=== PATIENT | female | born 1965 | race Caucasian/White ===

== ENCOUNTER → 2017-11-09 | Day surgery (SDC) | payer MEDICARE ==
[~2017-11-09] MED LIST: Iopamidol-M 300 61% 15 ML VIAL ONE
[2017-11-09 07:43] VITALS: TEMP 97.4; BMI 45.7
--- NOTE | 2017-11-09 09:39 | CT ---
CERVICAL SPINE CT POST MYELOGRAM: Comparison: 08-11-16 FINDINGS: Redemonstration of a disc prosthesis at C4-5 and C5-6. Interval removal of anterior fusion plate. 1.3 mm anterolisthesis of C3 upon C4. There are stable endplate changes at the level of disc prosthesis. Cervical spine vertebral body height is maintained. There is no fracture. Visualized soft tissue nec k structures are unremarkable. Visualized lung apices are also unremarkable. C2-3: No significant disc osteophyte complex. No significant central canal stenosis. Foramina are pat ent. C3-4: Broad disc osteophyte complex abuts the thecal sac. Mild central canal stenosis. Degenerative c hange of the bilateral vertebral joints results in mild bilateral neural foraminal narrowing. C4-5: Broad based osteophyte ridge. Mild central canal stenosis. Degenerative change in bilateral marcello tebral joints results in severe right and moderate to severe left foraminal narrowing. C5-6: Broad based osteophyte ridge abuts the ventral thecal sac. Mild central canal stenosis. Degener ative changes in bilateral uncal vertebral joints results in mild to moderate right and severe left f oraminal narrowing. C6-7: No high grade central canal stenosis. Right neural foramen is patent. Mild left foraminal narro wing. C7-T1: No significant central canal stenosis. Foramina are patent. IMPRESSION: Degenerative changes of the cervical spine as above. POS: [facility]
--- NOTE | 2017-11-09 09:47 | RAD ---
CERVICAL AND LUMBAR MYELOGRAM: Date: 11/09/17 HISTORY: Lumbar and cervical radiculopathy. EXPOSURE: 1.6 minutes. 1850.6 mGy*cm^2. 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 Two views lumbar spine demonstrate five lumbar-type vertebral bodies. There is degenerative change wi th loss of disc space height and osteophyte formation of the upper lumbar spine. Incidental surgical clips and suture chain is noted projecting over the upper abdomen. Successful lumbar puncture for intrathecal contrast administration. A total of 9 mL of Isovue-300M co ntrast administered intrathecally. The patient tolerated the procedure well. No immediate or postproc edure complications. TECHNIQUE: Consent obtained to perform a lumbar myelogram. The patient's back was evaluated. The L4-L5 level was deemed appropriate. Skin was prepped and draped in the sterile fashion. 1% lidocaine, buffered with sodium bicarbonate, was used for local anesthesia. Under fluoroscopic guidance, a 22 gauge spinal nee dle was advanced into the CSF space. Inner stylette was removed. There was prompt flow of clear CSF i nto the hub of the needle. Via a short tubing catheter, a total of 9 mL Isovue-300M contrast was admi nistered intrathecally. The patient tolerated the procedure well. No immediate or postprocedure compl ications. IMPRESSION: Successful lumbar puncture for cervical and lumbar myelogram. POS: [facility]
--- NOTE | 2017-11-09 10:48 | CT ---
LUMBAR SPINE CT STATUS POST MYELOGRAM: History: Lumbar radiculopathy. Comparison: None. Technique: Post myelogram lumbar spine CT is performed in the axial plane. Reformatted images are sub mitted for interpretation. FINDINGS: Lumbar spine vertebral body height is maintained. No fracture. No spondylolisthesis or spondylosis. There is vacuum disc phenomenon at L1-2, L2-3. Symmetric attenuation of the psoas muscles. Visualized aorta has a normal caliber. Enlarged left periaortic lymph node measuring 1.1 x 1.6 cm. Conus medullaris terminates at the upper to mid L1 level. T10-11, T11-12: No high grade central canal stenosis or high grade foraminal narrowing. T12-L1: No high grade central canal stenosis or significant foraminal narrowing. L1-2: No high grade central canal stenosis. Foramen are patent. L2-3: Generalized disc bulge, ligamentum flavum thickening result in each at least mild central canal stenosis. Mild to moderate bilateral foraminal narrowing. L3-4: No significant disc abnormality. No significant central canal stenosis. Moderate right and left foraminal narrowing. L4-5: Generalized disc bulge, ligamentum flavum thickening result in mild central canal stenosis. Mil d to moderate bilateral foraminal narrowing. L5-S1: No significant disc abnormality. No significant central canal stenosis. Mild narrowing of both subarticular zones due to disc material. Partial obscuration of bilateral traversing S1 nerve roots. No significant stenosis surrounds the thecal sac. Mild bilateral foraminal narrowing. IMPRESSION: Degenerative changes of the lumbar spine as above. POS: [facility]
== END ==
LOC: RAD 06:50
PROVIDERS: ATTEND Neurological Surgery
PROC: B01B1ZZ Fluoroscopy of Spinal Cord using Low Osmolar Contrast (ICD-10-PCS; principal; 2017-11-09)
DX: M50.10 Cervical disc disorder with radiculopathy, unspecified cervical region (principal); M51.16 Intervertebral disc disorders with radiculopathy, lumbar region; F31.9 Bipolar disorder, unspecified; G43.909 Migraine, unspecified, not intractable, without status migrainosus; K21.9 Gastro-esophageal reflux disease without esophagitis; J44.9 Chronic obstructive pulmonary disease, unspecified; G47.33 Obstructive sleep apnea (adult) (pediatric); E87.6 Hypokalemia; Z98.84 Bariatric surgery status; Z88.0 Allergy status to penicillin; Z88.1 Allergy status to other antibiotic agents; Z88.8 Allergy status to other drugs, medicaments and biological substances
CPT/HCPCS: 62305; 72126; 72132

== ENCOUNTER 2017-11-16 17:51 | Emergency (ER) | payer MEDICARE ==
[2017-11-16] MEDS ORDERED: Prochlorperazine 10 MG/2 ML VIAL ONE (18:41)
[2017-11-16] MEDS ORDERED: diphenhydrAMINE 50 MG/ML VIAL ONE (18:41)
[2017-11-16 19:05] LABS: #Basophils 0.2 thou/uL (0.0-0.2); #Eosinphils 1.1 thou/uL (0.0-0.7); #Lymphocytes 2.2 thou/uL (1.20-3.40); #Monocytes 0.9 thou/uL (0.11-0.59); #Neutrophils 5.5 thou/uL (1.40-6.50); %Basophils 2.3 % (0.0-1.0); %Eosinophils 11.1 % (0.0-10.0); %Lymphocytes 22.5 % (21.0-51.0); %Monocytes 8.9 % (0.0-10.0); %Neutrophils 55.3 % (42.0-75.0); Hemoglobin 13.1 g/dL (12.0-16.0); Mean Corpuscular HGB CONC 34.4 g/dL (32.0-36.0); Mean Corpuscular Hemoglobin 30.9 pg (27.0-31.0); Mean Corpuscular Volume 89.8 fl (81.0-99.0); Mean Platelet Volume 7.6 fL (7.4-10.4); Platelet Count 172 thou/uL (130-400); RBC Distribution Width 12.3 % (11.5-14.5); Red Blood Cell (RBC) Count 4.23 mill/uL (4.20-5.40); White Blood Cell (WBC) Count 9.9 thou/uL (4.8-10.8)
[2017-11-16 19:38] LABS: ALT (SGPT) 21 U/L (8-55); AST (SGOT) 16 U/L (5-34); Albumin 3.9 g/dL (3.5-5.0); Alkaline Phosphatase 128 U/L (40-150); Anion Gap 14 mmol/L (10-20); BUN (Urea Nitrogen) 35 mg/dL (9.8-20.1); Bilirubin, Total 0.2 mg/dL (0.2-1.2); Calc. Creatinine Clearance 0 mL/min (70-130); Calcium 9.2 mg/dL (7.8-10.44); Carbon Dioxide 26 mmol/L (22-29); Chloride 105 mmol/L (98-107); Estimated GFR-MDRD 64; Globulin 3.1 g/dL (2.4-3.5); Glucose 90 mg/dL (70-105); Potassium 4.6 mmol/L (3.5-5.1); Sodium 140 mmol/L (136-145)
[2017-11-16 19:38] LABS: Troponin I Less than 0.010 ng/mL (< 0.028)
--- NOTE | 2017-11-16 19:41 | RAD ---
SINGLE VIEW OF THE CHEST: 11/16/17 COMPARISON: 03/16/17. HISTORY: Weakness since last night and cough. FINDINGS: This exam is limited secondary to underpenetration. Single view of the chest shows a normal sized cardiomediastinal silhouette. There is no evidence of c onsolidation, mass, or pleural effusion. There are bone anchors in both shoulders from bilateral shou lder surgery. IMPRESSION: No evidence of acute cardiopulmonary disease. POS: [facility]
[2017-11-16 21:40] LABS: Bilirubin Negative (Negative); Blood, Urine Negative (Negative); Clarity Clear (Clear); Glucose, Urine (Dipstick) Negative (Negative); Leukocyte Negative (Negative); Nitrite Negative (Negative); Protein, Urine (Dipstick) Negative (Neg-Trace); Urobilinogen 0.2 mg/dL (0.2-1.0)
--- NOTE | 2017-11-27 21:01 | EKG ---
Test Reason : Blood Pressure : / mmHG Vent. Rate : 077 BPM Atrial Rate : 077 BPM P-R Int : 178 ms QRS Dur : 092 ms QT Int : 412 ms P-R-T Axes : 054 049 032 degrees QTc Int : 466 ms Normal sinus rhythm Normal ECG Confirmed by YONG MARLEY, CARLOS ([id number]), newspaper copy editor ALEXANDREA BHATT ([id number]) on 11/27/2017 9:01:19 PM Referred By: Confirmed By:CARLOS BEACH MD
== END 2017-11-16 22:24 | disposition home or self-care (01) ==
LOC: SCSER 17:51
DX: G43.909 Migraine, unspecified, not intractable, without status migrainosus (principal); E86.0 Dehydration; E11.9 Type 2 diabetes mellitus without complications; K21.9 Gastro-esophageal reflux disease without esophagitis; J44.9 Chronic obstructive pulmonary disease, unspecified; F41.9 Anxiety disorder, unspecified; F31.9 Bipolar disorder, unspecified; Z86.73 Personal history of transient ischemic attack (TIA), and cerebral infarction without residual deficits; Z79.899 Other long term (current) drug therapy
CPT/HCPCS: 71045; 80053; 81003; 84484; 85025; 93005; 96374; 96375; J0780; J1200

== ENCOUNTER 2017-12-30 13:17 | Inpatient (IN) | payer MEDICARE ==
[2017-12-30] MEDS ORDERED: Acetaminophen 500 MG TAB ONE (13:56)
[2017-12-30 14:18] LABS: Bilirubin Negative (Negative); Blood, Urine Negative (Negative); Clarity Slightly Cloudy (Clear); Glucose, Urine (Dipstick) Negative (Negative); Leukocyte Trace (Negative); Nitrite Negative (Negative); Protein, Urine (Dipstick) Negative (Neg-Trace); Urobilinogen 0.2 mg/dL (0.2-1.0)
[2017-12-30 14:29] LABS: Bacteria/HPF Rare-Few HPF (None Seen); RBC/HPF 0-3 HPF (0-3); Squamous Epithelial 0-3 HPF (0-3); WBC/HPF 0-3 HPF (0-3)
--- NOTE | 2017-12-30 14:43 | CT ---
CT OF THE BRAIN WITHOUT CONTRAST: Date: 12/30/17 COMPARISON: 03/16/17. HISTORY: Altered mental status and vomiting. TECHNIQUE: Multiple contiguous axial images were obtained in a CT of the brain without contrast. FINDINGS: There is calcification in the right basal ganglia. There appear to be stable hypodensities in the duy ateral parietooccipital regions which could represent encephalomalacia or small vessel ischemic disea se in these locations. No new large confluent infarction is seen. There is no evidence of hydrocephal us, intracranial hemorrhage, or extra-axial fluid collections. The calvarium and overlying soft tissues are unremarkable. Moderate diffuse sinus disease appears sta ble compared to the prior exam. The mastoid air cells are well aerated. IMPRESSION: No evidence of acute intracranial abnormality. POS: [facility]
[2017-12-30 14:45] LABS: #Basophils 0.2 thou/uL (0.0-0.2); #Eosinphils 0.6 thou/uL (0.0-0.7); #Lymphocytes 1.3 thou/uL (1.20-3.40); #Monocytes 1.1 thou/uL (0.11-0.59); #Neutrophils 11.3 thou/uL (1.40-6.50); %Basophils 1.2 % (0.0-1.0); %Eosinophils 4.4 % (0.0-10.0); %Lymphocytes 9.1 % (21.0-51.0); %Monocytes 7.4 % (0.0-10.0); %Neutrophils 78.1 % (42.0-75.0); Hemoglobin 13.3 g/dL (12.0-16.0); Mean Corpuscular HGB CONC 34.6 g/dL (32.0-36.0); Mean Corpuscular Hemoglobin 31.3 pg (27.0-31.0); Mean Corpuscular Volume 90.5 fl (81.0-99.0); Mean Platelet Volume 5.9 fL (7.4-10.4); Platelet Count 235 thou/uL (130-400); RBC Distribution Width 12.7 % (11.5-14.5); Red Blood Cell (RBC) Count 4.26 mill/uL (4.20-5.40); White Blood Cell (WBC) Count 14.4 thou/uL (4.8-10.8)
[2017-12-30 14:59] LABS: ALT (SGPT) 27 U/L (8-55); AST (SGOT) 15 U/L (5-34); Albumin 3.9 g/dL (3.5-5.0); Alkaline Phosphatase 122 U/L (40-150); Anion Gap 11 mmol/L (10-20); BUN (Urea Nitrogen) 6 mg/dL (9.8-20.1); Bilirubin, Total 0.3 mg/dL (0.2-1.2); Calc. Creatinine Clearance 0 mL/min (70-130); Calcium 9.2 mg/dL (7.8-10.44); Carbon Dioxide 23 mmol/L (22-29); Chloride 108 mmol/L (98-107); Estimated GFR-MDRD 72; Globulin 2.8 g/dL (2.4-3.5); Glucose 105 mg/dL (70-105); Potassium 4.1 mmol/L (3.5-5.1); Protein, Total 6.7 g/dL (6.0-8.3); Sodium 138 mmol/L (136-145)
[2017-12-30] MEDS ORDERED: Prochlorperazine 10 MG/2 ML VIAL ONE (15:12)
[2017-12-30] MEDS ORDERED: Ketorolac Tromethamine 30 MG/ML VIAL ONE (15:12)
[2017-12-30] MEDS ORDERED: diphenhydrAMINE 50 MG/ML VIAL ONE (15:12)
[2017-12-30 15:27] LABS: Troponin I Less than 0.010 ng/mL (< 0.028)
[2017-12-30 18:20] VITALS: BMI 43.4
[2017-12-30] MEDS: Sodium Chloride 0.9% 1,000 ML IV SCH (19:13)
[2017-12-30] MEDS ORDERED: cloNIDine 0.1 MG TAB PO PRN (22:10)
[2017-12-30] MEDS ORDERED: traMADol HCl 50 MG TAB PO PRN (22:10)
[2017-12-31] MEDS: Aspirin/APAP/Caffeine Tab (Excedrin Migraine) PO SCH ×4 (01:20→17:48)
--- NOTE | 2017-12-31 03:46 | HP ---
DATE OF ADMISSION: 12/30/2017 PRIMARY CARE PHYSICIAN: Elliott Barbosa MD CHIEF COMPLAINT: Nausea and vomiting. HISTORY OF PRESENT ILLNESS: This is a 52-year-old female patient with multiple medical problems incl uding bipolar disorder, fibromyalgia, sleep apnea, history of TIA, history of COPD, history of chroni c pain, migraine headache who states that she has had persistent nausea and vomiting since 12/25/2017 . She initially had some diarrhea, but that improved, but she continued to have nausea, vomiting, he adache, and poor appetite. The patient states about 1-2 weeks ago, she was seen by her psychiatrist who was adjusting her medicines and stopped some of her other bipolar medicines and started her on li thium. She states that he did started on high dose because her other medicines were discontinued at the same time. She was seen by Dr. Rosa today in the office, who felt like the patient was dehydra ian and she was sent to the emergency department for further evaluation. In the ED, she was found to be mild to moderately dehydrated. She was given IV fluids. [place] level was obtained, which was i n the toxic range and she is now being admitted for treatment of lithium toxicity in the acute phase. She was found to have abnormal EKG as well, so she is being monitored during her hospitalization. Of note, when I saw her, she was feeling much better. Her nausea was improved. She was able to eat mashed potatoes tonight and states that she is feeling more hungry than she has over the past week. PAST MEDICAL HISTORY: Again, fibromyalgia; history of COPD; history of migraine with chronic pain sy ndrome; history of chronic back pain; history of TIAs in the past; bipolar disorder with itzel in the past, has been followed by Dr. Concepcion with [facility]; history of acid reflux. MEDICATIONS: Include ergotamine and caffeine p.r.n. headache. She had been on Adderall, but not john ing it presently; Cogentin 2 mg at bedtime; dicyclomine 20 mg q.i.d.; fluticasone nose spray daily; h ydroxyzine 50 mg p.r.n. allergies: ipratropium p.r.n.; Singulair 10 mg daily; Symbicort 160/4.5 b.i.d .; Xanax 0.5 mg p.r.n. twice a day; Zyrtec p.r.n.; albuterol p.r.n.; chlorzoxazone 500 mg b.i.d. p.r. n.; Dexilant 60 mg daily. ALLERGIES: Include HYDROCODONE, PENICILLIN, PREDNISONE, LEVAQUIN, DIHYDROERGOTAMINE. PAST SURGICAL HISTORY: Includes cholecystectomy, knee surgery, wrist surgery, C4-C5 neck fusion, rig ht shoulder surgery, left hand surgery, hysterectomy in 2012, gastric bypass in 2009, total abdominal hysterectomy in 2012, C5-C6 fusion by Dr. Joshi in 2013. FAMILY HISTORY: Father with lung problems, bipolar disorder. Mother alive with arthritis, breast cancer, and bipolar. Siblings with anxiety, depression, and lung problems. SOCIAL HISTORY: Quit smoking in 2012. Positive coffee. She is retired. She is not . REVIEW OF SYSTEMS: As per the history of present illness. General: She denies any recent fevers or chills. HEENT: Denies visual or hearing changes. Denies upper respiratory symptoms. Cardiac: De nies chest pain, shortness of breath, or palpitations. Pulmonary: Denies cough or hemoptysis. Isabella rointestinal: As per the history of present illness with nausea, vomiting, remote history of diarrhe a. No melena or hematochezia. Genitourinary: No dysuria or hematuria. Neurologic: Positive heada maria isabel. No seizures or syncope. PHYSICAL EXAMINATION: VITAL SIGNS: Temperature 98.1, pulse of 73, respirations 16, blood pressure 176/98, pulse ox is 100% on room air. GENERAL: She is awake, alert, in no acute distress. Speech is clear and fluid. HEENT: Mucosa is moist. NECK: Supple. HEART: Regular rate and rhythm. LUNGS: Clear. ABDOMEN: With positive bowel sounds. Soft, nontender, nondistended. No hepatosplenomegaly. EXTREMITIES: No clubbing, cyanosis, or edema. LABORATORY AND X-RAY FINDINGS: White blood cell count 14,400, hemoglobin and hematocrit 13.3 and 38. 5, platelets of 235 with a normal differential. Sodium 138, potassium 4.1, chloride 108, CO2 of 23, BUN and creatinine of 6 and 0.83, serum glucose of 105, calcium of 9.2. Liver enzymes are normal. C ardiac enzymes are negative. Urinalysis was negative. [place] level was 1.772 with the upper range goes to 1.2. CT of the brain showed no active disease. ASSESSMENT: This is a 52-year-old female patient with multiple medical problems including polypharma cy, who was recently started on lithium for her bipolar disorder and now being admitted for acute lit hium toxicity with nausea and possible EKG changes. PLAN: 1. Agree with admission to telemetry. We will continue to monitor. We will recheck lithium level i n the morning as well as CBC and chemistry. 2. Bipolar. If her lithium level is back down to normal range, possibly can restart a lower dose of the lithium for good control of her bipolar. 3. Fibromyalgia. We will continue medications. 4. Asthma and chronic obstructive pulmonary disease. We will continue her respiratory medicines as well. 5. Chronic pain. I will continue the Parafon Forte and tramadol p.r.n. 6. Migraine headache. We will try tramadol for the pain or she may have to take her own ergotamine. Hopefully, it will be a short hospital stay and she can get home quickly.
[2017-12-31 05:16] LABS: #Basophils 0.1 thou/uL (0.0-0.2); #Eosinphils 0.8 thou/uL (0.0-0.7); #Lymphocytes 2.2 thou/uL (1.20-3.40); #Monocytes 0.9 thou/uL (0.11-0.59); #Neutrophils 7.5 thou/uL (1.40-6.50); %Basophils 0.6 % (0.0-1.0); %Eosinophils 6.7 % (0.0-10.0); %Lymphocytes 19.2 % (21.0-51.0); %Monocytes 7.7 % (0.0-10.0); %Neutrophils 65.8 % (42.0-75.0); Hemoglobin 12.2 g/dL (12.0-16.0); Mean Corpuscular HGB CONC 33.2 g/dL (32.0-36.0); Mean Corpuscular Volume 93.5 fl (81.0-99.0); Mean Platelet Volume 6.8 fL (7.4-10.4); Platelet Count 249 thou/uL (130-400); RBC Distribution Width 12.8 % (11.5-14.5); Red Blood Cell (RBC) Count 3.93 mill/uL (4.20-5.40); White Blood Cell (WBC) Count 11.5 thou/uL (4.8-10.8)
[2017-12-31 05:27] LABS: ALT (SGPT) 21 U/L (8-55); AST (SGOT) 15 U/L (5-34); Albumin 3.3 g/dL (3.5-5.0); Alkaline Phosphatase 125 U/L (40-150); Anion Gap 10 mmol/L (10-20); BUN (Urea Nitrogen) 6 mg/dL (9.8-20.1); Bilirubin, Total 0.3 mg/dL (0.2-1.2); Calc. Creatinine Clearance 174 mL/min (70-130); Calcium 8.8 mg/dL (7.8-10.44); Carbon Dioxide 20 mmol/L (22-29); Chloride 111 mmol/L (98-107); Estimated GFR-MDRD 85; Globulin 2.5 g/dL (2.4-3.5); Glucose 85 mg/dL (70-105); Potassium 3.8 mmol/L (3.5-5.1); Protein, Total 5.8 g/dL (6.0-8.3); Sodium 137 mmol/L (136-145)
[2017-12-31] MEDS: Sodium Chloride 0.9% 1,000 ML IV SCH ×4 (05:31→20:42)
[2017-12-31] MEDS: Furosemide 40 MG/4 ML VIAL SLOW IVP SCH ×2 (05:51→14:52)
[2017-12-31] MEDS: Mometasone/Formoterol 120 PUFF INHALER INH SCH ×2 (07:06→19:02)
[2017-12-31] MEDS ORDERED: ACETYLCYSTEINE 600 MG PO SCH (09:00)
[2017-12-31] MEDS ORDERED: ZINC 50 MG PO SCH (09:00)
[2017-12-31] MEDS: Magnesium Oxide 400 MG TAB PO SCH (09:04)
[2017-12-31] MEDS: Ascorbic Acid 500 mg Chewable Tablet PO SCH (09:04)
[2017-12-31] MEDS: Fluticasone Propionate Nasal Spray 16 gm Bottle NASAL SCH ×2 (09:06→20:47)
--- NOTE | 2017-12-31 09:22 | PRG ---
DATE OF SERVICE: 12/31/2017 HISTORY OF PRESENT ILLNESS: The patient states she feels slightly better following IV rehydration. Still has waxing and waning headaches. Reports Dulera does not cover her asthma symptoms as well as Symbicort. Verbalized understanding regarding p.r.n. breathing treatments, has not had any overnight . Had recently underwent change with psychiatrist back to lithium with extended release 250 mg. Con tinues to report nausea, requesting Phenergan today. No reports of emesis. States her chronic migra hdey are somewhat controlled on ergotamine at this point in time, but feels they have a complex natur e with some slurring speech and cognitive decline associated with them. PHYSICAL EXAMINATION: VITAL SIGNS: Temperature of 97.9, pulse of 80, respiratory rate of 16, oxygen saturation 97% on room air, blood pressure 110/56. GENERAL: The patient is alert and oriented, no acute distress. HEENT: Normocephalic, atraumatic. Extraocular movements are intact. Sclerae are clear. Oral mucos a is moist. NECK: Supple. HEART: Regular rate and rhythm. LUNGS: Clear to auscultation bilaterally. ABDOMEN: Soft, nontender, positive bowel sounds throughout. EXTREMITIES: Lower extremities with trace pitting edema, no cyanosis. NEUROLOGIC: The patient is alert and oriented x3, no focal deficits. Speech is normal. LABORATORY DATA: White blood cell count 11.5, hemoglobin 12.2, platelet count of 249. Sodium of 137 , potassium 3.8, chloride of 111, creatinine 0.72, glucose of 85, albumin of 0.33, a.m. lithium level 1.34, decreased from 1.77 on admission. ASSESSMENT AND PLAN: [place] toxicity, bipolar disease, asthma, chronic migraines. Holding the alysa ent's lithium, monitoring levels, aggressive IV hydration. Lasix to help retain sodium and limiting free water, which may help the patient's symptom profile. Once level at 0.8 or lower, we will restar t medication at less than the equivalent of 250 extended release per day. Continuing Dulera and p.r. n. breathing treatments for patient. The patient should have had home ordered for ergotamine for her migraines p.r.n., has Excedrin Migraine on formulary p.r.n. ordered. We will follow her progress wh [facility] inpatient. Likely discharge home tomorrow after lithium level will likely be decreased. Recheck ing sodium on Lasix and IV fluids later this afternoon.
[2017-12-31] MEDS: Promethazine 25 MG TAB PO PRN ×2 (10:23→22:18)
[2017-12-31] MEDS: Zinc Sulfate 220 MG CAP PO SCH (10:23)
[2017-12-31] MEDS: Acetylcysteine 10% 100 MG/ML 30 ml Vial PO SCH ×2 (11:44→21:42)
--- NOTE | 2017-12-31 11:51 | PQF ---
CLINICAL DOCUMENTATION IMPROVEMENT CLARIFICATION FORM: ICD-10 Updated PLEASE DO AN ADDENDUM TO THE PROGRESS NOTE WITH ANY DOCUMENTATION UPDATES OR ADDITIONS AND CARRY THROUGH TO DC SUMMARY. THANK YOU. DATE: 12/31 ATTN: DR. JAMEY CHAVEZ Please exercise your independent, professional judgment in responding to the clarification form. Clinical indicators are provided on the bottom of this form for your review Please check appropriate box(s): BMI > 40 with associated diagnosis of: (check one) [ x ] Morbid (Severe) Obesity [ ] Obesity [ ] Other diagnosis [ ] Unable to determine For continuity of documentation, please document condition throughout progress notes and discharge summary. Thank You. BMI < 19 Under weight 19 - 24.9 Healthy 25.0 - 29.9 Slightly Overweight 30.0 - 34.9 Obese 35.0 - 39.9 Severely Obese 40.0 and Over Morbidly Obese CLINICAL INDICATORS - SIGNS / SYMPTOMS / LABS BMI: 43.4 RISK FACTORS: GERD COPD/ASTHMA TREATMENTS: LARGE SIZE EQUIPMENT- BP CUFF, WC, ETC NUTRITION ASSESSMENT THANK YOU! Samantha (This form is maintained as a part of the permanent medical record) 2014 [employer]. All Rights Reserved Samantha Britt RN, BSN [email or web address] Office: [phone] [facility]
[2017-12-31] MEDS ORDERED: Benzonatate 100 MG CAP PO PRN (14:07)
[2017-12-31] MEDS ORDERED: hydrOXYzine 10 MG/5 ML UDCUP PO PRN (15:01)
[2017-12-31] MEDS: PROVENTIL INHALER 6.7 G (200 INHALATIONS) INH PRN (15:19)
[2017-12-31 16:15] LABS: Anion Gap 9 mmol/L (10-20); BUN (Urea Nitrogen) 6 mg/dL (9.8-20.1); Calc. Creatinine Clearance 151 mL/min (70-130); Calcium 9.5 mg/dL (7.8-10.44); Carbon Dioxide 25 mmol/L (22-29); Chloride 109 mmol/L (98-107); Estimated GFR-MDRD 72; Glucose 74 mg/dL (70-105); Potassium 4.1 mmol/L (3.5-5.1); Sodium 139 mmol/L (136-145)
[2017-12-31] MEDS: CAFFEINE PO PRN ×2 (16:29→20:48)
[2017-12-31] MEDS: ERGOTAMINE PO PRN ×2 (16:29→20:48)
[2017-12-31] MEDS ORDERED: diphenhydrAMINE 50 MG CAP PO SCH (21:00)
[2017-12-31] MEDS ORDERED: Montelukast Sodium 10 mg Tablet PO SCH (21:00)
[2018-01-01] MEDS: Aspirin/APAP/Caffeine Tab (Excedrin Migraine) PO SCH ×2 (01:10→06:20)
[2018-01-01] MEDS: Sodium Chloride 0.9% 1,000 ML IV SCH (03:35)
[2018-01-01 05:00] LABS: #Basophils 0.1 thou/uL (0.0-0.2); #Eosinphils 0.8 thou/uL (0.0-0.7); #Lymphocytes 2.5 thou/uL (1.20-3.40); #Monocytes 0.8 thou/uL (0.11-0.59); #Neutrophils 5.4 thou/uL (1.40-6.50); %Basophils 0.7 % (0.0-1.0); %Eosinophils 8.4 % (0.0-10.0); %Lymphocytes 26.2 % (21.0-51.0); %Monocytes 8.3 % (0.0-10.0); %Neutrophils 56.4 % (42.0-75.0); Mean Corpuscular HGB CONC 34.1 g/dL (32.0-36.0); Mean Corpuscular Hemoglobin 31.3 pg (27.0-31.0); Mean Corpuscular Volume 91.6 fl (81.0-99.0); Mean Platelet Volume 6.5 fL (7.4-10.4); Platelet Count 237 thou/uL (130-400); RBC Distribution Width 12.8 % (11.5-14.5); Red Blood Cell (RBC) Count 4.17 mill/uL (4.20-5.40); White Blood Cell (WBC) Count 9.6 thou/uL (4.8-10.8)
[2018-01-01 05:14] LABS: ALT (SGPT) 23 U/L (8-55); AST (SGOT) 18 U/L (5-34); Albumin 3.5 g/dL (3.5-5.0); Alkaline Phosphatase 129 U/L (40-150); Anion Gap 13 mmol/L (10-20); BUN (Urea Nitrogen) 6 mg/dL (9.8-20.1); Bilirubin, Total 0.3 mg/dL (0.2-1.2); Calc. Creatinine Clearance 153 mL/min (70-130); Calcium 8.7 mg/dL (7.8-10.44); Carbon Dioxide 18 mmol/L (22-29); Chloride 110 mmol/L (98-107); Estimated GFR-MDRD 73; Globulin 2.9 g/dL (2.4-3.5); Glucose 136 mg/dL (70-105); Potassium 3.5 mmol/L (3.5-5.1); Protein, Total 6.4 g/dL (6.0-8.3); Sodium 137 mmol/L (136-145)
[2018-01-01] MEDS: Furosemide 40 MG/4 ML VIAL SLOW IVP SCH (06:20)
[2018-01-01] MEDS: Mometasone/Formoterol 120 PUFF INHALER INH SCH (07:17)
[2018-01-01] MEDS: PROVENTIL INHALER 6.7 G (200 INHALATIONS) INH PRN (07:19)
[2018-01-01] MEDS ORDERED: Lithium Carbonate 150 MG CAP PO SCH (08:30)
[2018-01-01] MEDS ORDERED: Metoclopramide HCl 10 MG/2 ML VIAL IVP PRN (08:34)
[2018-01-01] MEDS ORDERED: Promethazine HCl 25 MG/ML VIAL IM/IV SCH (09:00)
[2018-01-01] MEDS: CAFFEINE PO PRN (09:33)
[2018-01-01] MEDS: Zinc Sulfate 220 MG CAP PO SCH (09:33)
[2018-01-01] MEDS: Acetylcysteine 10% 100 MG/ML 30 ml Vial PO SCH (09:33)
[2018-01-01] MEDS: ERGOTAMINE PO PRN (09:33)
[2018-01-01] MEDS: Ascorbic Acid 500 mg Chewable Tablet PO SCH (09:35)
[2018-01-01] MEDS: Magnesium Oxide 400 MG TAB PO SCH (09:36)
[2018-01-01] MEDS: Fluticasone Propionate Nasal Spray 16 gm Bottle NASAL SCH (09:36)
[2018-01-01 16:21] VITALS: BP 109/55; TEMP 98.3
--- NOTE | 2018-01-02 11:20 | DIS ---
DATE OF ADMISSION: 12/30/2017 DATE OF DISCHARGE: 01/01/2018 CHIEF COMPLAINT: Altered mental status, dehydration. HISTORY OF PRESENT ILLNESS: The patient, following an increase in lithium with her psychiatrist and discontinuation of other antipsychotics given patient's change from commercial to Medicare insurance, has attempted on extended release lithium and has not had a lithium level checked in approximately 2 weeks since starting her medication. [place] level in the emergency department was at toxic levels, likely explaining a lot of her nausea, fatigue, ataxia, cognitive impairment. The patient is status post bariatric surgery and has functional diarrhea, longstanding history of chronic migraines produc e nausea. She states she has been unable to keep much down over the last week. HOSPITAL COURSE: The patient was rehydrated with IV fluids, monitored on lithium level, restarted on immediate release low dose lithium; once her levels reached 0.8, continued on her home ergotamine re garding migraines. Patient to follow up in clinic next week with myself, Dr. Elliott Barbosa, follow up with her psychiatrist in the next month. We will recheck lithium level by the end of the week. Continue other home medications otherwise. Refilled patient's per rectum Phenergan. DISCHARGE DIET: Bariatric. DISCHARGE ACTIVITY: As tolerated. DISCHARGE CONDITION: Fair. HOME MEDICATIONS: Include Cogentin 2 mg t.i.d., Symbicort 160/4.5, Parafon Forte 500 mg p.r.n., Dexi lant 60 mg, lithium 150 mg b.i.d., magnesium 200 mg, Singulair 10 mg, Phenergan suppository 25 mg. C T head was performed and was negative. No consultations performed.
== END 2018-01-01 16:10 | disposition home or self-care (01) | DRG 92 ==
LOC: SCSER 13:17 → 2NO 16:15
PROVIDERS: ADMIT Family Medicine; ATTEND Family Medicine
DX: R27.0 Ataxia, unspecified (principal); K91.89 Other postprocedural complications and disorders of digestive system; Z68.41 Body mass index [BMI] 40.0-44.9, adult; E86.0 Dehydration; K59.1 Functional diarrhea; G43.909 Migraine, unspecified, not intractable, without status migrainosus; R53.83 Other fatigue; T43.595A Adverse effect of other antipsychotics and neuroleptics, initial encounter; R11.2 Nausea with vomiting, unspecified; F31.9 Bipolar disorder, unspecified; M79.7 Fibromyalgia; G47.30 Sleep apnea, unspecified; Z86.73 Personal history of transient ischemic attack (TIA), and cerebral infarction without residual deficits; J44.9 Chronic obstructive pulmonary disease, unspecified; G89.4 Chronic pain syndrome; Z87.891 Personal history of nicotine dependence; E66.01 Morbid (severe) obesity due to excess calories; F41.9 Anxiety disorder, unspecified
CPT/HCPCS: 36415; 70450; 80053; 80178; 81003; 81015; 82553; 83970; 84443; 84484; 85025; 93005; 94640; 96361; 96374; 96375; J0780; J1200; J1885; J1940; J2550; J2765; J7050; J7608; J7620

== ENCOUNTER 2018-04-14 14:16 | Outpatient (CLI) | payer MEDICARE ==
--- NOTE | 2018-04-14 16:13 | RAD ---
2 VIEWS LUMBAR SPINE: Date: 04/14/18 HISTORY: Recent fall. Previous surgery. COMPARISON: 05/21/16. FINDINGS: Two views of the lumbar spine are submitted for interpretation. Limited evaluation due to motion. The re are bilateral transpedicular screws at L2-L3. Possible perihardware lucency involving the screws a t L3. There is 5 mm of retrolisthesis of L2 upon L3. No evidence of vertebral body fracture. Stable d egenerative disc disease with loss of disc space height and osteophyte formation. IMPRESSION: 1. Redemonstration of essentially 5 mm of retrolisthesis of L2 upon L3. 2. Suggestion of perihardware lucency involving the transpedicular screws at L3. Better interrogatio n with a repeat lateral radiograph versus a lumbar spine CT is recommended. POS: [facility]
== END 2018-04-14 14:17 | disposition home or self-care (01) ==
LOC: TBSIIMAG 14:16
PROVIDERS: ATTEND Neurological Surgery
DX: M54.5 Low back pain (principal); M43.16 Spondylolisthesis, lumbar region; Z98.1 Arthrodesis status
CPT/HCPCS: 72100

== ENCOUNTER 2018-07-19 14:59 | Outpatient (CLI) | payer MEDICARE ==
--- NOTE | 2018-07-19 18:14 | CT ---
CT LUMBAR SPINE WITHOUT CONTRAST: History: Low back pain. Patient fell recently. Right foot and leg numbness and heaviness. Comparison: 03-13-10 FINDINGS: Five lumbar type vertebral bodies. Lumbar spine vertebral body height is maintained. No fracture. The re is vacuum disc phenomenon at L1-2 and L2-3. There are bilateral transpedicular screws at L2 and L3 . No perihardware lucency. 2.5 mm of retrolisthesis of at L2 upon L3. Bilateral pars defects are not appreciated, throughout the lumbar spine. Symmetric attenuation of the psoas muscles. Appropriate attenuation of the visualized solid organs. No retroperitoneal mass, lymphadenopathy, or hematoma. Limited evaluation of the contents of the spinal canal or neural foramina due to technique. T11-12 and T12-L1: No high grade central canal stenosis or high grade neural foraminal narrowing. L1-2: No significant central canal stenosis. Neural foramina are patent. L2-3: Generalized disc bulge results in mild central canal stenosis. Right neural foramen is moderate ly narrowed. Left neural foramen is patent. L3-4: Generalized disc bulge, minimal ligamentum flavum thickening results in mild central canal sten osis. Mild right and left foraminal narrowing. L4-5: Generalized disc bulge, ligamentum flavum thickening and facet hypertrophy results in mild cent ral canal stenosis. Mild bilateral foraminal narrowing. L5-S1: No significant posterior disc abnormality. No significant central canal stenosis. Mild bilater al foraminal narrowing. There is vacuum joint phenomenon. IMPRESSION: 1. Uncomplicated lumbar fusion hardware. 2. No evidence of lumbar spine fracture. 3. Varying degrees of central canal stenosis and foraminal narrowing as detailed above. POS: [facility]
--- NOTE | 2018-07-19 18:20 | CT ---
CT CERVICAL SPINE WITHOUT CONTRAST: Date: 07/19/18 HISTORY: Cervical radiculopathy. Neck pain with severe right shoulder and arm numbness x2 months. COMPARISON: Post myelogram CT dated 11/17/17. FINDINGS: There is no craniocervical dissociation. Lateral masses of C1 and C2, as well as facets, articulate a ppropriately. Intact odontoid process. There is a prosthesis at the C4-C5 and C5-C6 disc space levels. Cervical spine vertebral body heights are maintained. No fracture. End plate irregularity at C4-C5 and C5-C6 is likely on the basis of chr onic degenerative change. Soft tissue neck structures are unremarkable. Effacement of the left piriform sinus may be due to benny ign apposition of mucosa. Nonemergent direct visualization is recommended. Upper mediastinum and lung apices are unremarkable. C2-C3: No significant disc osteophyte complex. No significant central canal stenosis. Neural foramin a are patent. C3-C4: There is a broad based disc osteophyte complex with resultant moderate central canal stenosis . Bilaterally, neural foramina are patent. C4-C5: Broad based disc osteophyte ridge with mild to moderate central canal stenosis. Degenerative changes in bilateral uncovertebral joints results in moderate right and mild left foraminal narrowing . C5-C6: Broad based disc osteophyte ridge with resultant moderate central canal stenosis. Degenerativ e changes and bilateral uncovertebral joints and bilateral facet hypertrophy result in moderate to se [place]hara right and left foraminal narrowing. C6-C7: Broad based disc osteophyte complex. Mild central canal stenosis. Degenerative changes in duy ateral uncovertebral joints results in mild right and moderate left foraminal narrowing. C7-T1: No significant central canal stenosis or neural foraminal narrowing. IMPRESSION: Disc prosthesis at C4-C5 and C5-C6 levels. End plate changes are presumed to be chronic. No evidence of fracture. POS: [facility]
== END 2018-07-19 15:00 | disposition home or self-care (01) ==
LOC: BICCT 14:59
PROVIDERS: ATTEND Neurological Surgery
DX: M54.12 Radiculopathy, cervical region (principal); M54.5 Low back pain; M48.061 Spinal stenosis, lumbar region without neurogenic claudication; M48.07 Spinal stenosis, lumbosacral region; Z96.698 Presence of other orthopedic joint implants; Z98.1 Arthrodesis status
CPT/HCPCS: 72125; 72131

== ENCOUNTER 2018-07-31 16:31 | Emergency (ER) | payer MEDICARE ==
[2018-07-31 17:11] LABS: #Basophils 0.1 thou/uL (0.0-0.2); #Eosinphils 1.1 thou/uL (0.0-0.7); #Monocytes 1.1 thou/uL (0.11-0.59); #Neutrophils 6.2 thou/uL (1.40-6.50); %Basophils 0.6 % (0.0-1.0); %Eosinophils 10.1 % (0.0-10.0); %Lymphocytes 19.1 % (21.0-51.0); %Monocytes 10.4 % (0.0-10.0); %Neutrophils 59.7 % (42.0-75.0); Mean Corpuscular HGB CONC 32.5 g/dL (32.0-36.0); Mean Corpuscular Hemoglobin 31.5 pg (27.0-31.0); Mean Corpuscular Volume 96.8 fL (78.0-98.0); Mean Platelet Volume 6.9 fL (7.4-10.4); Platelet Count 283 thou/uL (130-400); RBC Distribution Width 13.6 % (11.5-14.5); Red Blood Cell (RBC) Count 4.12 mill/uL (4.20-5.40); White Blood Cell (WBC) Count 10.4 thou/uL (4.8-10.8)
[2018-07-31 17:33] LABS: ALT (SGPT) 20 U/L (8-55); AST (SGOT) 21 U/L (5-34); Albumin 4.1 g/dL (3.5-5.0); Alkaline Phosphatase 97 U/L (40-150); Anion Gap 14 mmol/L (10-20); BUN (Urea Nitrogen) 16 mg/dL (9.8-20.1); Bilirubin, Total 0.2 mg/dL (0.2-1.2); Calc. Creatinine Clearance 0 mL/min (70-130); Calcium 9.4 mg/dL (7.8-10.44); Carbon Dioxide 25 mmol/L (22-29); Chloride 105 mmol/L (98-107); Estimated GFR-MDRD 59; Globulin 3.2 g/dL (2.4-3.5); Glucose 97 mg/dL (70-105); Potassium 3.9 mmol/L (3.5-5.1); Protein, Total 7.3 g/dL (6.0-8.3); Sodium 140 mmol/L (136-145)
--- NOTE | 2018-07-31 19:21 | RAD ---
PORTABLE AP CHEST X-RAY: 07/31/2018 HISTORY: Chest pain. Shortness of breath. COMPARISON: 11/16/2017 FINDINGS: The cardiac silhouette is magnified by projection. The pulmonary vasculature is within normal limits . Linear densities are seen at the left lung base, probably related to superimposition of structures and mild atelectasis. The lungs are otherwise clear. Degenerative changes are present in the spine . Post surgical changes of each shoulder are again present. Metallic densities overly the lower cer vical spine. IMPRESSION: No acute cardiopulmonary process. POS: [facility]
--- NOTE | 2018-08-03 15:53 | EKG ---
Test Reason : Blood Pressure : / mmHG Vent. Rate : 077 BPM Atrial Rate : 077 BPM P-R Int : 174 ms QRS Dur : 084 ms QT Int : 416 ms P-R-T Axes : 056 046 032 degrees QTc Int : 470 ms Normal sinus rhythm Normal ECG Confirmed by PILY CURRY ([id number]), book or script editor ALEXANDREA BHATT ([id number]) on 08/03/2018 3:53:06 PM Referred By: Confirmed By:PILY CURRY
== END 2018-07-31 20:52 | disposition home or self-care (01) ==
LOC: ERS 16:31
DX: R07.89 Other chest pain (principal); K21.9 Gastro-esophageal reflux disease without esophagitis; J44.9 Chronic obstructive pulmonary disease, unspecified; Z79.899 Other long term (current) drug therapy
CPT/HCPCS: 36415; 71045; 80053; 83880; 84484; 85025; 93005

== ENCOUNTER 2018-09-22 14:33 | Outpatient (CLI) | payer MEDICARE | END 2018-09-22 14:34 | disposition home or self-care (01) | LOC: CTENTCT 14:33 | PROVIDERS: ATTEND Otolaryngology Plastic Surgery within the Head & Neck | DX: J33.9 Nasal polyp, unspecified (principal) | CPT/HCPCS: 70486 ==